=== PATIENT | male | born 1955 ===

== ENCOUNTER 2019-06-08 10:21 | Outpatient (CLI) | payer BC ==
[2019-06-08] MEDS ORDERED: ISOVUE-370 76%-LOCM 1 ML ONE (11:04)
--- NOTE | 2019-06-08 12:31 | CT ---
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 Axial, coronal and sagittal reformatted images were constructed from the raw data. FINDINGS: ABDOMEN: Lung bases: Clear Liver: No focal lesion. Gallbladder: Normal appearing. Pancreas: Normal. Adrenal glands: Normal. Spleen: Normal. Kidneys: Normal. Retroperitoneum of the upper abdomen: No lymphadenopathy or free fluid is identified. Pelvis: Small and large bowel: There is a moderate amount of retained stool within the colon. There is a norm al appendix in the right lower quadrant. Small bowel is normal-appearing. Bladder: Normal. Rectal and perirectal soft tissues:Normal. Reproductive structures: Normal. Free fluid in pelvis: No free fluid is evident. Lymphadenopathy pelvis: No lymphadenopathy is evident. Osseous structures: Bilateral pars defects at L5 with grade 1 anterolisthesis. Moderate to severe mul tilevel spondylosis. There is scattered degenerative and osteoarthritic changes. Vasculature: Aorta: Normal in caliber without evidence of stenosis or occlusion. The proximal aorta measured 2.3 c m. The mid abdominal aorta at the level renal arteries measure 2.2 cm. The distal abdominal aorta just proximal to the bifurcation measured 2.3 cm. Celiac:Normal in caliber without evidence of stenosis or occlusion. SMA:Normal in caliber without evidence of stenosis or occlusion. Renal arteries:The renal arteries are duplicated bilaterally and are patent VAL:Normal in caliber without evidence of stenosis or occlusion. Right common iliac artery: Dilated measuring 1.7 cm Right external iliac artery: Measures 1.1 cm and widely patent. Right internal iliac artery: Normal in caliber without evidence of stenosis or occlusion. Left common iliac artery: Measures 1.6 cm and is widely patent. Left external iliac artery: 1.1 cm and widely patent.. Left internal iliac artery: Normal in caliber without evidence of stenosis or occlusion. Right common femoral artery: Normal in caliber without evidence of stenosis or occlusion. Right deep femoral artery: Normal in caliber without evidence of stenosis or occlusion. Right superficial femoral artery: Normal in caliber without evidence of stenosis or occlusion. Right popliteal artery: Normal in caliber without evidence of stenosis or occlusion. Right posterior tibial artery: Mild diffuse atherosclerotic irregularity of the right posterior tibi al artery. No definite hemodynamically significant stenosis is evident. Right anterior tibial artery: Normal in caliber without evidence of stenosis or occlusion. Right peroneal artery: Normal in caliber without evidence of stenosis or occlusion. Left common femoral artery: Normal in caliber without evidence of stenosis or occlusion. Left deep femoral artery: Normal in caliber without evidence of stenosis or occlusion. Left superficial femoral artery: Normal in caliber without evidence of stenosis or occlusion. Left popliteal artery: Normal in caliber without evidence of stenosis or occlusion. Left posterior tibial artery: Mild atherosclerotic irregularity Left anterior tibial artery: Normal in caliber without evidence of stenosis or occlusion. Left peroneal artery: Normal in caliber without evidence of stenosis or occlusion. Additional findings: Mild Achilles tendinosis bilaterally IMPRESSION: 1. Mild aneurysmal dilatation of the right common and left common iliac artery. The right common Cardiac measured up to 1.7 cm and the left measured 1.6 cm. 2. Moderate amount of retained stool within the colon 3. Bilateral pars defects at L5 with grade 1 anterolisthesis 4. Mild Achilles tendinosis.
== END 2019-06-08 10:22 | disposition home or self-care (01) ==
LOC: BICCT 10:21
PROVIDERS: ATTEND Internal Medicine Cardiovascular Disease
DX: I72.3 Aneurysm of iliac artery (principal); K59.00 Constipation, unspecified; M43.16 Spondylolisthesis, lumbar region; M76.62 Achilles tendinitis, left leg; M76.61 Achilles tendinitis, right leg
CPT/HCPCS: 75635; Q9966